=== PATIENT | male | born 1960 | race Hispanic/Latino ===

== ENCOUNTER 2017-11-27 22:43 | Emergency (ER) | payer MEDICAID, OTHER ==
[2017-11-27 22:43] VITALS: BMI 28.8
[2017-11-27 22:51] VITALS: BP 149/89; PULSE 78; RESP 20; TEMP 98.2; O2SAT 95
--- NOTE | 2017-11-27 23:43 | C.PDOC ---
History Of Present Illness 57 year old male presents to the ER with a complaint of moderate pain to the left ankle. Patient reports a Hx of similar pain in his hands. Patient notes he drinks beer daily and is unsure if he has a Hx of gout but notes a diagnosis of arthritis. Denies injury, weakness, or numbness. Time Seen by Provider: 11/27/17 22:55 Chief Complaint (Nursing): Lower Extremity Problem/Injury History Per: Patient History/Exam Limitations: no limitations Onset/Duration Of Symptoms: Hrs Current Symptoms Are (Timing): Still Present Recent travel outside of the [place]: No Past Medical History Reviewed: Historical Data, Nursing Documentation, Vital Signs Vital Signs: Last Vital Signs Temp 98.2 F 11/27/17 22:49 Pulse 78 11/27/17 22:49 Resp 20 11/27/17 22:49 BP 149/89 11/27/17 22:49 Pulse Ox 95 11/28/17 02:11 - Medical History PMH: Benign Prostatic Hyperplasia, HTN - [facility] Procedures EXCIS LESION OF MUSCLE (01/28/14) Family History: States: Unknown Family Hx - Social History Hx Tobacco Use: No Hx Alcohol Use: Yes Hx Substance Use: No - Immunization History Hx Tetanus Toxoid Vaccination: No Hx Influenza Vaccination: Yes Hx Pneumococcal Vaccination: No Review Of Systems Musculoskeletal: Positive for: Foot Pain Neurological: Negative for: Weakness, Numbness Physical Exam - Physical Exam Appears: Non-toxic Skin: Normal Color, Warm, Dry Head: Atraumatic, Normacephalic Eye(s): bilateral: Normal Inspection Extremity: No Calf Tenderness, Capillary Refill (<2 seconds), Other (Swelling and tenderness to left lateral malleolus, minimal swelling to left medial malleolus, ROM of left ankle causes pain) Pulses: Left Dorsalis Pedis: Normal, Right Dorsalis Pedis: Normal Neurological/Psych: Oriented x3, Normal Speech, Normal Motor, Normal Sensation Gait: Other (minimal limp due to pain) ED Course And Treatment O2 Sat by Pulse Oximetry: 95 (Room air) Pulse Ox Interpretation: Normal Progress Note: Colocrys and toradol administered. On reevaluation, patient reports improvement of pain. He was placed in an eulalia wrap, and advised to follow up with PMD. 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 - Scribe Statement The provider has reviewed the documentation as recorded by the Scribe Jarad Metcalf All medical record entries made by the Jim were at my direction and personally dictated by me. I have reviewed the chart and agree that the record accurately reflects my personal performance of the history, physical exam, medical decision making, and the department course for this patient. I have also personally directed, reviewed, and agree with the discharge instructions and disposition.
== END 2017-11-28 | disposition home or self-care (01) ==
LOC: C.ER 22:43
DX: M25.572 Pain in left ankle and joints of left foot (principal); M10.9 Gout, unspecified; I10 Essential (primary) hypertension; N40.0 Benign prostatic hyperplasia without lower urinary tract symptoms
CPT/HCPCS: 96372; 99285; J1885

== ENCOUNTER 2018-01-16 16:20 | Emergency (ER) | payer MEDICAID, OTHER ==
[2018-01-16 16:24] VITALS: BMI 29.5
[2018-01-16 16:27] VITALS: BP 117/77; PULSE 81; RESP 20; TEMP 98.4; O2SAT 97
--- NOTE | 2018-01-16 16:49 | C.PDOC ---
History Of Present Illness 58 y/o male presents to the ER complaining of right knee pain and swelling which has been present for the past 3 days. Patient states that the pain is worse with weight bearing and he has limited full ROM due to the pain and swelling. Patient reports that he did not take any medications for the pain. Denies having direct trauma, injury, weakness and numbness. Patient notes that he was previously diagnosed with arthritis. Time Seen by Provider: 01/16/18 16:37 Chief Complaint (Nursing): Lower Extremity Problem/Injury History Per: Patient History/Exam Limitations: no limitations Onset/Duration Of Symptoms: Days Current Symptoms Are (Timing): Still Present Severity: Moderate Past Medical History Vital Signs: Last Vital Signs Temp 98.4 F 01/16/18 16:25 Pulse 81 01/16/18 16:25 Resp 20 01/16/18 16:25 BP 117/77 01/16/18 16:25 Pulse Ox 97 01/16/18 16:49 - Medical History PMH: Arthritis, Benign Prostatic Hyperplasia, HTN - [facility] Procedures EXCIS LESION OF MUSCLE (01/28/14) Family History: States: Unknown Family Hx - Social History Hx Tobacco Use: No Hx Alcohol Use: Yes Hx Substance Use: No - Immunization History Hx Tetanus Toxoid Vaccination: No Hx Influenza Vaccination: Yes Hx Pneumococcal Vaccination: No Review Of Systems Except As Marked, All Systems Reviewed And Found Negative. Musculoskeletal: Positive for: Other (right knee pain) Neurological: Negative for: Weakness, Numbness Physical Exam - Physical Exam Appears: Non-toxic, No Acute Distress Skin: Normal Color, Warm, Dry Head: Atraumatic, Normacephalic Eye(s): bilateral: Normal Inspection Respiratory: Other (NARD) Extremity: No Normal ROM (limited full flexion in right knee secondary to pain and swelling), Swelling (mild swelling in front of right knee) Neurological/Psych: Oriented x3, Normal Speech ED Course And Treatment O2 Sat by Pulse Oximetry: 97 (RA) Pulse Ox Interpretation: Normal Medical Decision Making Medical Decision Making: Plan: --Motrin PO --Tramadol PO Disposition Counseled Patient/Family Regarding: Diagnosis, Need For Followup, Rx Given - Disposition Referrals: your,pmd [Other] Disposition: HOME/ ROUTINE Disposition Time: 16:47 Condition: IMPROVED Prescriptions: Acetaminophen [Tylenol Extra Strength] 2 tab PO Q6 #30 tablet Ibuprofen [Motrin] 600 mg PO Q6 #30 tab Instructions: Knee Pain (DC) Forms: [employer] (Bulgarian) Print Language: ITALIAN - Clinical Impression Clinical Impression: Knee pain, Knee effusion - Scribe Statement The provider has reviewed the documentation as recorded by the Jim Lafleur Provider Attestation: All medical record entries made by the Jasmineibpriya were at my direction and personally dictated by me. I have reviewed the chart and agree that the record accurately reflects my personal performance of the history, physical exam, medical decision making, and the department course for this patient. I have also personally directed, reviewed, and agree with the discharge instructions and disposition.
== END 2018-01-16 16:59 | disposition home or self-care (01) ==
LOC: C.ER 16:20
DX: M25.461 Effusion, right knee (principal); M25.561 Pain in right knee

== ENCOUNTER 2018-03-11 09:48 | Day surgery (SDC) | payer MEDICAID ==
[2018-03-11] MEDS ORDERED: Gentamicin 160 MG in Sodium Chloride 0.9% 100 ML IVPB ONE (12:30)
[2018-03-11] MEDS ORDERED: Propofol 10 mg/ml Inj (20 ML) ONE (12:38)
[2018-03-11] MEDS ORDERED: Midazolam 2 MG/2 ML VIAL ONE (12:38)
[2018-03-11] MEDS ORDERED: Ciprofloxacin 400mg/200ml D5W 400 MG/200 ML BAG IVPB ONE (12:39)
--- NOTE | 2018-03-11 12:55 | PCM.SURG1 ---
Surgeon's Initial Post Op Note - Surgeon's Notes Surgeon: [employer] Operator: ALBERTO Type of Anesthesia: General LMA Anesthesia Administered By: Staff Pre-Operative Diagnosis: BPH/WEINSTEIN Operative Findings: same Post-Operative Diagnosis: Bph/Weinstein Operation Performed: Cystoscopy Specimen/Specimens Removed: na Estimated Blood Loss: EBL {In ML}: 0 Blood Products Given: N/A Drains Used: No Drains Post-Op Condition: Good Date of Surgery/Procedure: 03/11/18 Time of Surgery/Procedure: 12:55
[2018-03-11] MEDS ORDERED: HYDROmorphone 0.5 mg/0.5 ml ISec IVP PRN (13:05)
[2018-03-11 15:09] VITALS: BP 137/76; PULSE 88; RESP 18; TEMP 98; O2SAT 98
--- NOTE | 2018-03-12 03:23 | OP ---
PROCEDURE DATE: 03/11/2018 PREOPERATIVE DIAGNOSIS: Benign prostatic hypertrophy with bladder outlet obstruction. POSTOPERATIVE DIAGNOSIS: Benign prostatic hypertrophy with bladder outlet obstruction. PROCEDURE: Cystopanendoscopy. SURGEON: Bryce Alves MD FINDINGS: Trilobar hypertrophy of the prostate with significant bladder outlet obstruction, compensatory trabeculation of bladder +3 to 4, pseudodiverticulum formation, no tumor or stone. DESCRIPTION OF PROCEDURE: The procedure is as follows: The patient was asked to sign a detailed informed consent after explained the risks, complications, benefits and limitations with this procedure as well as alternative procedure. The patient signed the consent and agreed to accept the risks and was brought into the room. A time-out was taken according to the rules and regulations of [facility]. The patient was draped and prepped and placed in a lithotomy position. He was cystoscoped with #21 Storz panendoscope. The pendulous and membranous urethra was normal. The prostatic urethra showed trilobar hypertrophy with significant outlet obstruction. The bladder was heavily trabeculated with pseudodiverticulum formation. There were no tumors or stones. Both ureteral orifices effluxed clear urine. The bladder was drained. The scope was removed. Based on the above findings, the patient will need treatment for bladder outlet obstruction and is a candidate for TULIP. Bryce Alves MD
== END 2018-03-11 15:11 | disposition home or self-care (01) ==
LOC: C.SDS 09:48
PROVIDERS: ATTEND Urology
DX: N40.1 Benign prostatic hyperplasia with lower urinary tract symptoms (principal)
CPT/HCPCS: 52000; 82948; J0744; J1580